=== PATIENT | male | born 1975 | race Caucasian/White ===

== ENCOUNTER 2021-06-06 04:25 | Emergency (ER) | payer BC ==
[~2021-06-06] VITALS: Ht 177.8 cm; Wt 77.1 kg
[2021-06-06 04:25] VITALS: BP_SYST 144
[~2021-06-06 04:25] MED LIST: ALBU8.5H8 INH; MONT10TA22 PO
--- NOTE | 2021-06-06 04:30 | NUR ---
Patient to ER bed 3 to gown for evaluation. Side rails up.
--- NOTE | 2021-06-06 04:35 | NUR ---
PT ARRIVED TO ER FOR HIS" HEART RACING". PT STATES HE WOKE UP THIS MORNING AT AROUND 0330 FROM A WEIRD FEELING OF HIS HEART RACING. PT WAS SWEATY AND FEELING UNCOMFORTABLE. PT CAME TO ER TO SEE WHAT IS HAPPENING. STATES A BIT OF CHEST PRESSURE BUT - PAIN. PT SEEMS SOB. A&OX3.
--- NOTE | 2021-06-06 04:35 | NUR ---
ER at bedside examining patient.
[2021-06-06] MEDS: ASPIRIN 81 MG TAB.CHEW PO ONE (04:49)
[2021-06-06] MEDS: NITROGLYCERIN 0.4 MG TAB.SUBL SL ONE (04:57)
--- NOTE | 2021-06-06 05:15 | NUR ---
PT GIVEN 2 DOSES OF SL NITRO, PT SAYS SOB WAS RELIVED BUT FEELS PRESSURE IN BACK OF HEAD. DR SALCIDO NOTIFIED
[2021-06-06 05:31] LABS: BASOPHILS # (AUTO) 0.1 K/uL (0.0-0.2); BASOPHILS % (AUTO) 0.6 % (0.0-2.0); CREATININE 0.92 mg/dL (0.55-1.30); EOSINOPHILS # (AUTO) 0.4 K/uL (0.0-0.4); EOSINOPHILS % (AUTO) 3.9 % (0.0-4.0); HEMATOCRIT 45.6 % (36-54); HEMOGLOBIN 16.2 g/dL (14.0-18.0); LYMPHOCYTES % (AUTO) 31.1 % (20.5-51.5); MEAN CORPUSCULAR HEMOGLOBIN 31 pg (27-31); MEAN CORPUSCULAR HGB CONC 35 % (32-36); MEAN CORPUSCULAR VOLUME 87 fL (79.0-98.0); MONOCYTES # (AUTO) 0.9 K/uL (0.0-1.0); MONOCYTES % (AUTO) 9.3 % (1.7-9.3); NEUTROPHILS # (AUTO) 5.4 K/uL (1.8-7.7); NEUTROPHILS % (AUTO) 55.1 % (40.0-70.0); PLATELET COUNT (AUTO) 325 K/uL (130-430); POTASSIUM 3.5 mmol/L (3.5-5.1); RED BLOOD CELL COUNT(AUTO) 5.24 MIL/uL (4.2-6.2); RED CELL DISTRIBUTION WIDTH 13.4 % (9.0-15.0); WHITE BLOOD COUNT (AUTO) 9.7 K/uL (4.8-10.8)
[2021-06-06 05:37] LABS: ALBUMIN 3.7 g/dL (3.4-4.8); TOTAL BILIRUBIN 0.2 mg/dL (0.0-1.0)
--- NOTE | 2021-06-06 06:13 | NUR ---
PT IS CALM AND RESTING IN BED. STATES HIS SYMPTOMS HAVE DECREASED AND DOESNT FEEL BAD BEFORE. PT WAITING FOR TROPONIN DRAW AT 0800
--- NOTE | 2021-06-06 07:15 | NUR ---
Pt. comfortable, states feels much better, VSS, awaiting second troponin Addendum: 06/06/21 at 0728 by MILAGRO note entered by Daniela Hahn
[2021-06-06 09:30] VITALS: BP_SYST 149
--- NOTE | 2021-06-06 09:30 | NUR ---
Patient given written and verbal discharge instructions and verbalizes understanding. ER Dr. Medina discussed with patient the results and treatment provided. Patient in stable condition. ID arm band removed. IV catheter removed intact and dressing applied, no active bleeding. Patient educated on pain management and to follow up with PMD. Pain Scale 0. Opportunity for questions provided and answered. Medication side effect fact sheet provided.
== END 2021-06-06 09:30 | disposition home or self-care (01) ==
LOC: SED 04:25
DX: R07.89 Other chest pain (principal); R00.2 Palpitations; J45.909 Unspecified asthma, uncomplicated; Z79.899 Other long term (current) drug therapy
CPT/HCPCS: 36415; 71045; 80053; 83880; 84484; 85025; 85379; 93005; 99285